=== PATIENT | male | born 1975 ===

== ENCOUNTER → 2018-02-20 | Outpatient (CLI) | payer OTHER | END | disposition home or self-care (01) | LOC: MRI 09:07 | DX: R43.0 Anosmia (principal) | CPT/HCPCS: 70553 ==

== ENCOUNTER 2018-02-26 07:51 | Outpatient (CLI) | payer OTHER ==
[~2018-02-26] VITALS: Ht 182.9 cm; Wt 79.4 kg
== END 2018-02-26 08:10 | disposition home or self-care (01) ==
LOC: OFIC 805 07:51
DX: R43.0 Anosmia (principal); R09.81 Nasal congestion; J30.89 Other allergic rhinitis